=== PATIENT | female | born 1935 | race Caucasian/White ===

== ENCOUNTER 2020-04-14 01:44 | Emergency (ER) | payer MEDICARE, OTHER ==
--- NOTE | 2020-04-14 02:05 | EDM.PDOC ---
ED HPI GENERAL MEDICAL PROBLEM - General Chief Complaint: Abdominal Pain Stated Complaint: VOMITING Time Seen by Provider: 04/14/20 01:50 Source of Information: Reports: Patient History Limitations: Reports: No Limitations - History of Present Illness INITIAL COMMENTS - FREE TEXT/NARRATIVE: 84 YO WF PRESENTS TO ER COMPLAINING OF INTRACTABLE VOMITING WHICH BEGAN AT 3PM YESTERDAY WITH ASSOCIATED LOWER ABDOMINAL CRAMPING. PT STATES SHE RECEIVED HER SECOND COVID SHOT YESTERDAY BUT STATES SHE NOTICED HER ABDOMINAL CRAMPING PRIOR TO THE ADMINISTRATION OF HER SECOND VACCINE. PT REPORTS CRAMPING RESOLVES AFTER VOMITING. PT DENIES FEVER/CHILLS, NO CHEST PAIN OR SHORTNESS OF BREATH, NO DIARRHEA OR CONSTIPATION. PT REPORTS VOMITING APPROXIMATELY 10 TIMES SINCE SYMPTOMS BEGAN 9 HOURS AGO. PT REPORTS FOUL SMELLING URINE BUT DENIES URINARY FREQUENCY OR DYSURIA. PT REPORTS TOTAL HYSTERECTOMY AND APPENDECTOMY OVER 20 YEARS AGO. Onset: Today Duration: Hour(s): (9) Location: Reports: Abdomen, Generalized Quality: Reports: Ache Severity: Mild Improves with: Reports: None Worsens with: Reports: None Associated Symptoms: Reports: No Other Symptoms, Loss of Appetite, Nausea/Vomiting. Denies: Chest Pain, Cough, cough w sputum, Diaphoresis, Malaise, Shortness of Breath, Weakness - Related Data Allergies Allergy/AdvReac Type Severity Reaction Status Date / Time No Known Drug Allergies Allergy Cannot Verified 04/14/20 01:55 Remember Home Meds: Home Meds Apixaban [Eliquis] 5 mg PO DAILY 04/14/20 [History] Flecainide [Tambocor] 50 mg PO BID 04/14/20 [History] Levothyroxine [Synthroid] 100 mcg PO ACBREAKFAST 04/14/20 [History] Metoprolol Succinate 25 mg PO DAILY 04/14/20 [History] Nitrofurantoin Monohyd/M-Cryst [Macrobid 100 mg Capsule] 100 mg PO BID #14 capsule 04/14/20 [Rx] ED ROS GENERAL - Review of Systems Review Of Systems: See Below Constitutional: Reports: No Symptoms HEENT: Reports: No Symptoms Respiratory: Reports: No Symptoms Cardiovascular: Reports: No Symptoms Endocrine: Reports: No Symptoms GI/Abdominal: Reports: Anorexia, Nausea, Vomiting : Reports: No Symptoms Musculoskeletal: Reports: No Symptoms Skin: Reports: No Symptoms Neurological: Reports: No Symptoms Psychiatric: Reports: No Symptoms Hematologic/Lymphatic: Reports: No Symptoms Immunologic: Reports: No Symptoms ED EXAM, GI/ABD - Physical Exam Exam: See Below Exam Limited By: No Limitations General Appearance: Alert, WD/WN, No Apparent Distress Head: Atraumatic, Normocephalic Neck: Normal Inspection, Supple, Non-Tender, Full Range of Motion Respiratory/Chest: No Respiratory Distress, Lungs Clear, Normal Breath Sounds, No Accessory Muscle Use, Chest Non-Tender Cardiovascular: Normal Peripheral Pulses, Regular Rate, Rhythm, No Edema, No Gallop, No JVD, No Murmur, No Rub GI/Abdominal Exam: Normal Bowel Sounds, Soft, Non-Tender, No Organomegaly, No Distention, No Abnormal Bruit, No Mass, Pelvis Stable Back Exam: Normal Inspection, Full Range of Motion, NT Extremities: Normal Inspection, Normal Range of Motion, Non-Tender, Normal Capillary Refill, No Pedal Edema Neurological: Alert, Oriented, CN II-XII Intact, Normal Cognition, Normal Gait, Normal Reflexes, No Motor/Sensory Deficits Psychiatric: Normal Affect, Normal Mood Skin Exam: Warm, Dry, Intact, Normal Color, No Rash Lymphatic: No Adenopathy Course - Vital Signs Last Recorded V/S: Last Vital Signs Temp 96.8 F L 04/14/20 01:47 Pulse 81 04/14/20 01:47 Resp 18 04/14/20 01:47 BP 129/79 04/14/20 01:47 Pulse Ox - Orders/Labs/Meds Orders: Active Orders 24 hr Category Date Time Status Peripheral IV Care [RC] . DIRECTED Care 04/14/20 01:58 Active UA W/MICROSCOPIC [URIN] Stat Lab 04/14/20 02:55 Received Sodium Chloride 0.9% [Saline Flush] Med 04/14/20 01:57 Active 10 ml FLUSH Q8HR PRN Peripheral IV Insertion Adult [OM.PC] Routine Oth 04/14/20 01:57 Ordered Medication Orders Sodium Chloride (Saline Flush) 10 ml FLUSH Q8HR PRN PRN Reason: keep vein open Last Admin: 04/14/20 02:33 Dose: 10 ml Documented by: HARSH Labs: Laboratory Tests 04/14/20 04/14/20 Range/Units 02:00 02:00 WBC 14.43 H (5.00-10.00) 10^3/uL RBC 3.99 (3.80-5.50) 10^6/uL Hgb 13.4 (12.0-16.0) g/dL Hct 39.2 (37.0-47.0) % MCV 98.2 H (82.0-92.0) fL MCH 33.6 H (27.0-31.0) pg MCHC 34.2 (32.0-36.0) g/dL RDW 12.3 (11.5-14.5) % Plt Count 235 (150-400) 10^3/uL MPV 10.0 (7.4-10.4) fL Immature Gran % (Auto) 0.1 (0.0-5.0) % Neut % (Auto) 89.9 H (50.0-70.0) % Lymph % (Auto) 4.5 L (20.0-40.0) % [place] % (Auto) 5.3 (2.0-8.0) % Eos % (Auto) 0.1 L (1.0-3.0) % Baso % (Auto) 0.1 (0.0-1.0) % Neut # (Auto) 12.97 H (2.50-7.00) 10^3/uL Lymph # (Auto) 0.65 L (1.00-4.00) 10^3/uL [place] # (Auto) 0.76 (0.10-0.80) 10^3/uL Eos # (Auto) 0.01 L (0.10-0.30) 10^3/uL Baso # (Auto) 0.02 (0.00-0.10) 10^3/uL Immature Gran # (Auto) 0.02 (0.00-0.50) 10^3/uL Sodium 135 L (136-145) mmol/L Potassium 4.1 (3.5-5.1) mmol/L Chloride 96 L (98-107) mmol/L Carbon Dioxide 28.2 (21.0-32.0) mmol/L Anion Gap 14.9 (5-15) mmol/L BUN 23 H (7-18) mg/dL Creatinine 0.86 (0.51-1.17) mg/dL Est Cr Clr Drug Dosing 40.55 mL/min Estimated GFR (MDRD) > 60 mL/min Glucose 141 H (70-140) mg/dL Calcium 10.0 (8.7-10.3) mg/dL Total Bilirubin 1.5 H (0.2-1.0) mg/dL AST 25 (15-37) U/L ALT 19 (14-63) U/L Alkaline Phosphatase 52 (46-116) U/L Total Protein 7.7 (6.4-8.2) g/dL Albumin 4.52 (3.40-5.00) g/dL Lipase 125 (73-393) U/L Meds: Medications Generic Name Dose Route Start Last Admin Trade Name Freq PRN Reason Stop Dose Admin Sodium Chloride 10 ml 04/14/20 01:57 04/14/20 02:33 Saline Flush FLUSH 10 ml Q8HR PRN Administration keep vein open Discontinued Medications Generic Name Dose Route Start Last Admin Trade Name Freq PRN Reason Stop Dose Admin Sodium Chloride 1,000 mls @ 999 mls/hr 04/14/20 01:57 04/14/20 02:34 Normal Saline IV 04/14/20 02:57 999 mls/hr .BOLUS ONE Administration Ondansetron HCl 4 mg 04/14/20 01:57 04/14/20 02:33 Zofran IVPUSH 04/14/20 01:58 4 mg ONETIME ONE Administration - Re-Assessments/Exams Free Text/Narrative Re-Assessment/Exam: 04/14/20 03:09 PT REPORTS FEELING MUCH BETTER. TOLERATED SMALL PO FLUID CHALLENGE. NO ABDOMINAL PAIN OR VOMITING Departure - Departure Time of Disposition: 03:26 Disposition: Home, Self-Care 01 Condition: Good Clinical Impression: Gastroenteritis Vomiting Qualifiers: Vomiting type: unspecified Vomiting Intractability: intractable Nausea prese nce: with nausea Qualified Code(s): R11.2 - Nausea with vomiting, unspecified Urinary tract infection Qualifiers: Urinary tract infection type: acute cystitis Hematuria presence: without hematuria Qualified Code(s): N30.00 - Acute cystitis without hematuria - Discharge Information Prescriptions: Nitrofurantoin Monohyd/M-Cryst [Macrobid 100 mg Capsule] 100 mg PO BID #14 capsule Instructions: Nausea and Vomiting, Adult Referrals: Jade Smallwood ASSISTANT COMMUNITY MANAGER [Primary Care Provider] - Forms: ED Department Discharge Additional Instructions: 1. DISCHARGE HOME 2. ZOFRAN ODT 4MG #6 1 TABLET EVERY 4-6 HOURS NEEDED FOR VOMITING 3. CLEAR LIQUID DIET AND PROGRESS TOLERATED 4. FOLLOW UP WITH PCP IF NO IMPROVEMENT NEXT 48-72 HOURS 5. RETURN TO ER FOR WORSENING SYMPTOMS 6. MACROBID 100MG TWICE/DAY X 7 DAYS FOR URINARY TRACT INFECTION Sepsis Event Note (ED) - Evaluation Sepsis Screening Result: No Definite Risk - Focused Exam Vital Signs: Vital Signs Temp Pulse Resp BP 04/14/20 01:47 96.8 F L 81 18 129/79 - My Orders Last 24 Hours: My Active Orders 04/14/20 01:57 Sodium Chloride 0.9% [Saline Flush] 10 ml FLUSH Q8HR PRN Peripheral IV Insertion Adult [OM.PC] Routine 04/14/20 01:58 Peripheral IV Care [RC] . DIRECTED 04/14/20 02:55 UA W/MICROSCOPIC [URIN] Stat - Assessment/Plan Last 24 Hours: My Active Orders 04/14/20 01:57 Sodium Chloride 0.9% [Saline Flush] 10 ml FLUSH Q8HR PRN Peripheral IV Insertion Adult [OM.PC] Routine 04/14/20 01:58 Peripheral IV Care [RC] . DIRECTED 04/14/20 02:55 UA W/MICROSCOPIC [URIN] Stat Assessment:: 1. VOMITING-RESOLVED 2. VIRAL GASTROENTERITIS Plan: 1. DISCHARGE HOME 2. ZOFRAN ODT 4MG #6 1 TABLET EVERY 4-6 HOURS NEEDED FOR VOMITING 3. CLEAR LIQUID DIET AND PROGRESS TOLERATED 4. FOLLOW UP WITH PCP IF NO IMPROVEMENT NEXT 48-72 HOURS 5. RETURN TO ER FOR WORSENING SYMPTOMS 6. MACROBID 100MG TWICE/DAY X 7 DAYS FOR URINARY TRACT INFECTION
[2020-04-14 02:29] LABS: ANION GAP 14.9 mmol/L (5-15); CHLORIDE,CL 96 mmol/L (98-107); SODIUM,NA 135 mmol/L (136-145)
[2020-04-14] MEDS: Ondansetron 4 MG/2 ML SDV IVPUSH ONE (02:33)
[2020-04-14] MEDS: Sodium Chloride 0.9% 10 ML Syringe FLUSH PRN (02:33)
[2020-04-14] MEDS: Sodium Chloride 0.9% 1,000 ML IV ONE (02:34)
[2020-04-14] MEDS: cefTRIAXone 1 GM Vial IVPUSH ONE (03:33)
[2020-04-14] MEDS: Ondansetron 4 MG Tab.DIS PO ONE (03:44)
== END 2020-04-14 03:50 | disposition home or self-care (01) ==
LOC: SUPCPDRO 01:44 → KA.ED 01:44
DX: K52.9 Noninfective gastroenteritis and colitis, unspecified (principal); N30.00 Acute cystitis without hematuria; Z79.01 Long term (current) use of anticoagulants; Z79.899 Other long term (current) drug therapy
CPT/HCPCS: 80053; 81001; 83690; 85025; 87077; 87086; 87088; 87186; 96374; 96375; 99283; 99284-25; A9270-GY; J0696; J2405; J7030